=== PATIENT | female | born 1930 | race Caucasian/White ===

== ENCOUNTER 2017-02-17 05:43 | Inpatient (IN) | payer MEDICARE, OTHER ==
[~2017-02-17] VITALS: Ht 167.6 cm; Wt 68.0 kg
[~2017-02-17 05:43] MED LIST: MUPI22OI TP
[2017-02-17] MEDS ORDERED: normal saline 1000ML IV soln IVB ONE (06:35)
[2017-02-17 06:54] LABS: PARTIAL THROMBOPLASTIN TIME 26 SECONDS (22-32); PROTHROMBIN TIME 10.2 SECONDS (9.0-12.0)
[2017-02-17 06:56] LABS: BASOPHILS % (AUTO) 0.3 % (0-1); EOSINOPHILS # (AUTO) 0.2 X10'3 (0-0.9); EOSINOPHILS % (AUTO) 1.3 % (0-6); HEMATOCRIT 43.6 % (35.0-45.0); HEMOGLOBIN 14.8 g/dl (12.0-16.0); LYMPHOCYTES % (AUTO) 6.8 % (21-51); MEAN CORPUSCULAR HEMOGLOBIN 34.1 PG (27.0-31.0); MEAN CORPUSCULAR HGB CONC 33.8 % (33.0-36.5); MEAN CORPUSCULAR VOLUME 100.9 FL (78-98); MEAN PLATELET VOLUME 8.5 FL (7.4-10.4); MONOCYTES # (AUTO) 0.7 X10'3 (0-0.9); MONOCYTES % (AUTO) 5.1 % (2-12); NEUTROPHILS # (AUTO) 12.2 X10'3 (1.8-7.7); NEUTROPHILS % (AUTO) 86.5 % (42-75); PLATELET COUNT 301 X10'3 (140-440); RED BLOOD COUNT 4.32 X10'6 (4.20-5.60); RED CELL DISTRIBUTION WIDTH 14.3 % (11.5-14.5); WHITE BLOOD COUNT 14.1 X10'3 (4.5-11.0)
[2017-02-17 06:57] LABS: ALANINE AMINOTRANSFERASE 23 U/L (12-78); ALBUMIN/GLOBULIN RATIO 1.1 (1.1-1.5); ALKALINE PHOSPHATASE 62 IU/L (46-116); ANION GAP 8 (8-16); ASPARTATE AMINO TRANSFERASE 21 U/L (10-37); BILIRUBIN,TOTAL 0.5 MG/DL (0.1-1.0); BLOOD UREA NITROGEN 13 MG/DL (7-18); BUN/CREATININE RATIO 12.7 (6.6-38.0); CALCIUM 8.8 MG/DL (8.5-10.1); CHLORIDE 103 MMOL/L (99-107); CREATININE 1.02 MG/DL (0.40-0.90); GLUCOSE 111 MG/DL (70-104); LIPASE 93 U/L (73-393); MAGNESIUM 1.8 MG/DL (1.5-2.4); POTASSIUM 3.6 MMOL/L (3.5-5.1); SODIUM 142 MMOL/L (135-145); TOTAL CARBON DIOXIDE 30.8 MMOL/L (24-32); TOTAL PROTEIN 7.5 G/DL (6.4-8.2); eGFR 52 ML/MIN
[2017-02-17 07:02] LABS: CLARITY,URINE CLEAR (Clear); COLOR,URINE YELLOW (Yellow); GLUCOSE, URINE NEGATIVE (Neg); KETONES,URINE NEGATIVE (Neg); LEUKOCYTE ESTERASE ,URINE LARGE (Neg); NITRITES, URINE NEGATIVE (Neg); OCCULT BLOOD,URINE TRACE-INTACT (Neg); PROTEIN,URINE NEGATIVE (Neg); UROBILINOGEN,URINE 0.2 E.U/dL (0.2-1.0)
[2017-02-17 07:04] LABS: UA COLLECTION TYPE VOIDED
[2017-02-17 07:05] LABS: RBC,URINE NONE SEEN /HPF (0-2); WBC,URINE 0-4 /HPF (0-4)
[2017-02-17 07:06] LABS: BACTERIA,URINE NONE SEEN /HPF (Neg); MUCUS STRANDS FEW /LPF (Neg); SQUAMOUS EPITHELIAL CELL,UR FEW /LPF (FEW)
[2017-02-17] MEDS: diatr meglu/diatrizoate 30ml oral sol.-(3 dose) bottle PO SCH ×3 (07:37→09:07)
[2017-02-17] MEDS ORDERED: iohexol 300mg/ml 100ml inj. ONE (09:06)
[2017-02-17] MEDS ORDERED: piperacillin/tazo 3.375gm/50ml 50 ML IV ONE (10:15)
[2017-02-17] MEDS ORDERED: mag hydrox/Alum hydrox/simeth 30ml oral suspension PO PRN (11:00)
[2017-02-17] MEDS ORDERED: acetaminophen 650mg rectal suppository RC PRN (11:00)
[2017-02-17] MEDS ORDERED: ondansetron/PF 4mg/2ml inj IV PRN (11:00)
[2017-02-17] MEDS ORDERED: bisacodyl 10mg suppository rectal RC PRN (11:00)
[2017-02-17] MEDS: normal saline 1000ml 1,000 ML IV SCH ×2 (11:47→12:51)
[2017-02-17 12:46] VITALS: BP 115/61
[2017-02-17] MEDS ORDERED: ASPI81TA52 PO (14:03)
[2017-02-17] MEDS ORDERED: FISH12002 PO (14:03)
[2017-02-17] MEDS ORDERED: NIA500ERT PO (14:03)
[2017-02-17] MEDS ORDERED: HYDROcodone/acetaminophen 5mg/325mg tablet PO PRN (14:30)
[2017-02-17] MEDS: piperacillin/tazo 3.375gm/50ml 50 ML IV SCH ×2 (14:39→19:38)
[2017-02-17 20:00] VITALS: BP 125/55
[2017-02-18] VITALS: BP 116/53
[2017-02-18] MEDS: piperacillin/tazo 3.375gm/50ml 50 ML IV SCH ×4 (02:36→20:42)
[2017-02-18 05:37] LABS: BASOPHILS % (AUTO) 0.3 % (0-1); EOSINOPHILS # (AUTO) 0.2 X10'3 (0-0.9); EOSINOPHILS % (AUTO) 2.6 % (0-6); HEMATOCRIT 34.3 % (35.0-45.0); HEMOGLOBIN 11.4 g/dl (12.0-16.0); LYMPHOCYTES # (AUTO) 1.9 X10'3 (1.1-4.8); LYMPHOCYTES % (AUTO) 22.9 % (21-51); MEAN CORPUSCULAR HEMOGLOBIN 33.5 PG (27.0-31.0); MEAN CORPUSCULAR HGB CONC 33.3 % (33.0-36.5); MEAN CORPUSCULAR VOLUME 100.7 FL (78-98); MEAN PLATELET VOLUME 8.9 FL (7.4-10.4); MONOCYTES # (AUTO) 0.6 X10'3 (0-0.9); MONOCYTES % (AUTO) 7.4 % (2-12); NEUTROPHILS # (AUTO) 5.6 X10'3 (1.8-7.7); NEUTROPHILS % (AUTO) 66.8 % (42-75); PLATELET COUNT 226 X10'3 (140-440); RED BLOOD COUNT 3.41 X10'6 (4.20-5.60); WHITE BLOOD COUNT 8.4 X10'3 (4.5-11.0)
[2017-02-18 05:49] LABS: ALANINE AMINOTRANSFERASE 28 U/L (12-78); ALBUMIN 2.8 G/DL (3.4-5.0); ALKALINE PHOSPHATASE 37 IU/L (46-116); ANION GAP 7 (8-16); ASPARTATE AMINO TRANSFERASE 22 U/L (10-37); BILIRUBIN,TOTAL 0.9 MG/DL (0.1-1.0); BLOOD UREA NITROGEN 8 MG/DL (7-18); BUN/CREATININE RATIO 11.3 (6.6-38.0); CHLORIDE 109 MMOL/L (99-107); CREATININE 0.71 MG/DL (0.40-0.90); GLUCOSE 99 MG/DL (70-104); POTASSIUM 3.2 MMOL/L (3.5-5.1); SODIUM 143 MMOL/L (135-145); TOTAL CARBON DIOXIDE 27.2 MMOL/L (24-32); TOTAL PROTEIN 5.6 G/DL (6.4-8.2); eGFR 78 ML/MIN
[2017-02-18 07:09] VITALS: BP 129/66
[2017-02-18] MEDS: enoxaparin 40mg/0.4ml syringe SQ SCH (07:21)
[2017-02-18] MEDS ORDERED: potassium Cl 40MEQ/NS 500ml 500 ML IV PRN ×2 (08:05)
[2017-02-18] MEDS ORDERED: magnesium 2GM in 50ml NS 50 ML IV PRN (08:05)
[2017-02-18] MEDS ORDERED: magnesium 4gm in 100ml NS 100 ML IV PRN (08:05)
[2017-02-18] MEDS ORDERED: potassium Cl 20 mEq SR tablet PO PRN (08:05)
[2017-02-18] MEDS: potassium Cl 20 mEq SR tablet PO PRN ×3 (08:25→16:22)
[2017-02-18] MEDS: normal saline 1000ml 1,000 ML IV SCH (08:28)
[2017-02-18 11:48] VITALS: BP 140/78
[2017-02-18 19:00] VITALS: BP 144/65
[2017-02-19] MEDS: piperacillin/tazo 3.375gm/50ml 50 ML IV SCH ×2 (02:35→08:24)
[2017-02-19 04:23] LABS: BASOPHILS % (AUTO) 0.5 % (0-1); EOSINOPHILS # (AUTO) 0.2 X10'3 (0-0.9); EOSINOPHILS % (AUTO) 3.3 % (0-6); HEMATOCRIT 35.3 % (35.0-45.0); HEMOGLOBIN 11.9 g/dl (12.0-16.0); LYMPHOCYTES # (AUTO) 1.7 X10'3 (1.1-4.8); LYMPHOCYTES % (AUTO) 25.6 % (21-51); MEAN CORPUSCULAR HEMOGLOBIN 33.7 PG (27.0-31.0); MEAN CORPUSCULAR HGB CONC 33.6 % (33.0-36.5); MEAN CORPUSCULAR VOLUME 100.3 FL (78-98); MEAN PLATELET VOLUME 8.9 FL (7.4-10.4); MONOCYTES # (AUTO) 0.7 X10'3 (0-0.9); MONOCYTES % (AUTO) 10.9 % (2-12); NEUTROPHILS # (AUTO) 3.9 X10'3 (1.8-7.7); NEUTROPHILS % (AUTO) 59.7 % (42-75); PLATELET COUNT 244 X10'3 (140-440); RED BLOOD COUNT 3.52 X10'6 (4.20-5.60); RED CELL DISTRIBUTION WIDTH 13.8 % (11.5-14.5); WHITE BLOOD COUNT 6.5 X10'3 (4.5-11.0)
[2017-02-19] MEDS: normal saline 1000ml 1,000 ML IV SCH (04:25)
[2017-02-19 04:53] LABS: ALANINE AMINOTRANSFERASE 21 U/L (12-78); ALBUMIN 2.9 G/DL (3.4-5.0); ALKALINE PHOSPHATASE 39 IU/L (46-116); ANION GAP 8 (8-16); ASPARTATE AMINO TRANSFERASE 15 U/L (10-37); BILIRUBIN,TOTAL 0.5 MG/DL (0.1-1.0); BLOOD UREA NITROGEN 6 MG/DL (7-18); BUN/CREATININE RATIO 7.6 (6.6-38.0); CHLORIDE 109 MMOL/L (99-107); CREATININE 0.79 MG/DL (0.40-0.90); GLUCOSE 99 MG/DL (70-104); MAGNESIUM 1.8 MG/DL (1.5-2.4); POTASSIUM 3.5 MMOL/L (3.5-5.1); SODIUM 143 MMOL/L (135-145); TOTAL CARBON DIOXIDE 26.4 MMOL/L (24-32); TOTAL PROTEIN 5.9 G/DL (6.4-8.2); eGFR 69 ML/MIN
[2017-02-19 08:00] VITALS: BP 132/57
[2017-02-19] MEDS: enoxaparin 40mg/0.4ml syringe SQ SCH (08:24)
[2017-02-19] MEDS ORDERED: glycerin ADULT rectal suppository RC PRN (10:20)
[2017-02-19 11:33] VITALS: BP 145/72
[2017-02-19] MEDS ORDERED: METR500T4 PO (11:36)
[2017-02-19] MEDS ORDERED: POTA20TA19 PO (11:36)
[2017-02-19] MEDS ORDERED: AMOX-422 PO (11:36)
== END 2017-02-19 13:43 | disposition home or self-care (01) | DRG 392 ==
LOC: ER 05:43 → ED HOLD 10:56 → EDBEDREQ 12:09 → SUR 3N 12:44
PROVIDERS: ADMIT Family Medicine; ATTEND Family Medicine
PROC: BW211ZZ Computerized Tomography (CT Scan) of Abdomen and Pelvis using Low Osmolar Contrast (ICD-10-PCS; principal; 2017-02-17)
DX: K57.92 Diverticulitis of intestine, part unspecified, without perforation or abscess without bleeding (principal); I25.10 Atherosclerotic heart disease of native coronary artery without angina pectoris; N83.201 Unspecified ovarian cyst, right side; Z90.49 Acquired absence of other specified parts of digestive tract; Z79.899 Other long term (current) drug therapy; Z79.82 Long term (current) use of aspirin; Z88.1 Allergy status to other antibiotic agents; Z88.6 Allergy status to analgesic agent; Z87.891 Personal history of nicotine dependence; Z80.52 Family history of malignant neoplasm of bladder; Z80.9 Family history of malignant neoplasm, unspecified
CPT/HCPCS: 36415; 74177; 76856; 80053; 81001; 83605; 83690; 83735; 85025; 85610; 85730; 87040; 87070; 87088; 93005; 96361; 96365; 99285; A6449; J1650; J2543; J7030; Q9963; Q9967

== ENCOUNTER 2017-06-09 15:55 | Emergency (ER) | payer MEDICARE, OTHER ==
[~2017-06-09] VITALS: Ht 165.1 cm; Wt 67.7 kg
[~2017-06-09 15:55] MED LIST changes: +ASPI81TA52 PO; +FISH12002 PO; +NIA500ERT PO
[2017-06-09 16:15] VITALS: BP 153/90
[2017-06-09] MEDS ORDERED: CEPH500C2 PO (17:30)
[2017-06-09] MEDS ORDERED: methylPREDNISolone sod succ 125mg/2ml vial IM ONE (17:35)
[2017-06-09] MEDS ORDERED: famotidine 20mg tablet PO ONE (17:35)
== END 2017-06-09 17:44 | disposition home or self-care (01) ==
LOC: ER 15:56
DX: L25.8 Unspecified contact dermatitis due to other agents (principal); T37.0X5A Adverse effect of sulfonamides, initial encounter; I25.10 Atherosclerotic heart disease of native coronary artery without angina pectoris; Z79.82 Long term (current) use of aspirin; Z79.899 Other long term (current) drug therapy; Y92.89 Other specified places as the place of occurrence of the external cause
CPT/HCPCS: 96372; 99283; J2930

== ENCOUNTER 2021-04-25 13:24 | Emergency (ER) | payer MEDICARE, SELFPAY ==
[~2021-04-25] VITALS: Ht 165.1 cm; Wt 65.9 kg
[~2021-04-25 13:24] MED LIST changes: +LIDOcaine 1% W/epiNEPHrine 1:100,000 20ml vial ONE
[2021-04-25 13:35] VITALS: BP 200/88
[2021-04-25] MEDS ORDERED: ondansetron 4mg rapidly disintigrating tab PO ONE (14:20)
[2021-04-25] MEDS ORDERED: amox tr/potassium clavulanate 875/125mg TAB PO ONE (14:20)
[2021-04-25] MEDS ORDERED: AMOX-419 PO (14:20)
== END 2021-04-25 14:45 | disposition home or self-care (01) ==
LOC: ER 13:24
DX: K08.89 Other specified disorders of teeth and supporting structures (principal); I25.10 Atherosclerotic heart disease of native coronary artery without angina pectoris; Z98.890 Other specified postprocedural states; Z72.89 Other problems related to lifestyle; Z88.1 Allergy status to other antibiotic agents; Z88.5 Allergy status to narcotic agent; Z79.2 Long term (current) use of antibiotics; Z79.82 Long term (current) use of aspirin; Z79.899 Other long term (current) drug therapy
CPT/HCPCS: 64400; 99284; J3490